=== PATIENT | male | born 1955 | race Caucasian/White ===

== ENCOUNTER → 2024-07-08 | Outpatient (CLI) | payer OTHER, SELFPAY ==
--- NOTE | 2024-07-08 10:38 | XR_ITS ---
Examination: Right temporomandibular joints 3 views TECHNIQUE: Down, sagittal oblique opening mouth closed mouth right temporomandibular joints 3 views Exam date and time: July 08, 2024 11:25 AM INDICATIONS: Right jaw pain popping and grinding sensation 2 months. FINDINGS: Mild osteoarthritis temporomandibular joint No fracture Adequate for translation right mandibular condyle in the open-mouth position IMPRESSION: Mild osteoarthritis temporomandibular joint If symptoms persist, consider MRI temporomandibular joints follow-up
== END | disposition home or self-care (01) ==
LOC: CDIM 09:58
PROVIDERS: PCP Family Medicine; Referring Provider Physician Assistant; Visit Provider Physician Assistant
DX: M19.09 Primary osteoarthritis, other specified site (principal)
CPT/HCPCS: 70328

== ENCOUNTER → 2024-07-19 | Outpatient (CLI) | payer OTHER, SELFPAY ==
--- NOTE | 2024-07-19 10:32 | XR_ITS ---
EXAMINATION: Cervical spine, 5 views Technique: Cervical spine AP, AP odontoid, lateral, bilateral obliques, 5 views Exam date and time: July 19, 2024 1046 hrs. Indications: Neck pain beginning 2 months ago. Findings: Adequate alignment cervical vertebral bodies No cervical fracture Intact odontoid Advanced degenerative disc disease C4-C5, C5-C6 with moderate bilateral neural foraminal stenosis at these levels Impression: Advanced degenerative disc disease C4-C5, C5-C6 with moderate bilateral neural foraminal stenosis
[2024-07-19 11:07] LABS: Alanine Aminotransferase 56 U/L (10-49); Albumin, Serum 4.5 gm/dL (3.4-4.8); Albumin/Globulin Ratio 1.9 (1.2-2.2); Alkaline Phosphatase 64 U/L (46-116); Anion Gap 11 (7-16); Aspartate Amino Transferase 30 U/L (0-34); BUN/Creatinine Ratio 17 Ratio (12-20); Bilirubin,Total 0.9 mg/dL (0.3-1.2); Blood Urea Nitrogen 20 mg/dL (9-23); Calcium 9.9 mg/dL (8.3-10.6); Calcium (Corrected) 9.9 mg/dL (8.5-10.1); Carbon Dioxide 29.5 mMol/L (20.0-31.0); Cardiac Risk Estimate 3.2 RATIO (4.0-6.7); Chloride 101 mMol/L (98-107); Cholesterol 171 mg/dL (132-200); Creatinine (Component) 1.2 mg/dL (0.6-1.3); Globulin 2.4 gm/dL (2.3-3.5); Glucose 123 mg/dL (74-106); HDL Cholesterol 53 mg/dL (40-60); LDL Cholesterol,Calculated 92 mg/dL (0-130); Osmolality,Calculated 284 (275-295); Potassium 3.8 mMol/L (3.4-5.1); Sodium 141 mMol/L (136-145); Total Protein 6.9 gm/dL (5.7-8.2); Triglycerides 131 mg/dL (30-150); eGFR > 60 See Note
[2024-07-19 11:30] LABS: Glucose Estimated Average 157 mg/dL (80-131); Hemoglobin A1C 7.1 % Hgb (4.8-6.0)
== END | disposition home or self-care (01) ==
PROVIDERS: PCP Family Medicine; Referring Provider Physician Assistant; Visit Provider Radiology Diagnostic Radiology
DX: M50.322 Other cervical disc degeneration at C5-C6 level (principal); M48.02 Spinal stenosis, cervical region; I10 Essential (primary) hypertension; E78.5 Hyperlipidemia, unspecified; E11.9 Type 2 diabetes mellitus without complications
CPT/HCPCS: 36415; 72050; 80053; 80061; 83036

== ENCOUNTER → 2024-07-21 | Outpatient (CLI) | payer OTHER, SELFPAY ==
--- NOTE | 2024-07-21 07:30 | XR_ITS ---
Examination: CT brain head without contrast. 2-D sagittal coronal reconstructions Date and time of exam:July 21, 2024 0748 hrs. Indications: Headaches beginning 2 months ago CTDI: vol (mGy):53 DLP: (mGycm):1053 Technique: Multiple CT axial sections of the brain have been obtained, 5 mm slice thickness. Contrast has not been administered. 2-D sagittal, coronal reconstructions have been obtained Low dose protocols were performed. One or more of the following dose reduction techniques were used; automated exposure control, adjustment of the mA and/or KV according to patient size, use of iterative reconstruction technique. Findings: No significant ventricular enlargement. Intra-axial or extra-axial hemorrhage density is not seen. No mass effect or midline shift Basal cisterns are not remarkable. Fourth ventricle is midline. Cranial vault intact. Impression: Negative for acute hemorrhage, mass effect or midline shift Advise clinical correlation and follow-up accordingly
== END | disposition home or self-care (01) ==
LOC: CCTX 06:42
PROVIDERS: PCP Family Medicine; Referring Provider Physician Assistant; Visit Provider Physician Assistant
DX: R51.9 Headache, unspecified (principal)
CPT/HCPCS: 70450

== ENCOUNTER → 2024-11-03 | Outpatient (CLI) | payer OTHER, SELFPAY ==
--- NOTE | 2024-11-03 | XR_ITS ---
Examination: Lumbar spine, 5 views Technique: Lumbar spine AP, lateral, coned lateral lower lumbar spine, bilateral obliques 5 views Exam date and time: November 03, 2024 0721 hours INDICATIONS: Lower back pain one month. FINDINGS: Lumbar dextroscoliosis 10 degrees Moderate diffuse facet arthropathy No lumbar fracture Diffuse lumbar degenerative disc disease, advanced L3-L4, L4-L5 IMPRESSION: Advanced degenerative disc disease L3-L4, L4-L5
== END | disposition home or self-care (01) ==
LOC: CDIM 06:39
PROVIDERS: PCP Physician Assistant; Referring Provider Chiropractor; Visit Provider Chiropractor
DX: M51.360 Other intervertebral disc degeneration, lumbar region with discogenic back pain only (principal); M41.9 Scoliosis, unspecified
CPT/HCPCS: 72110

== ENCOUNTER → 2024-11-22 | Outpatient (CLI) | payer OTHER, SELFPAY ==
[2024-11-22 12:38] LABS: Alanine Aminotransferase 33 U/L (10-49); Albumin, Serum 4.5 gm/dL (3.4-4.8); Albumin/Globulin Ratio 1.7 (1.2-2.2); Alkaline Phosphatase 60 U/L (46-116); Anion Gap 9 (7-16); Aspartate Amino Transferase 30 U/L (0-34); BUN/Creatinine Ratio 13 Ratio (12-20); Blood Urea Nitrogen 15 mg/dL (9-23); Calcium 9.3 mg/dL (8.3-10.6); Calcium (Corrected) 9.3 mg/dL (8.5-10.1); Carbon Dioxide 28.5 mMol/L (20.0-31.0); Chloride 105 mMol/L (98-107); Cholesterol 171 mg/dL (132-200); Creatinine (Component) 1.2 mg/dL (0.6-1.3); Globulin 2.7 gm/dL (2.3-3.5); Glucose 134 mg/dL (74-106); HDL Cholesterol 43 mg/dL (40-60); LDL Cholesterol,Calculated 98 mg/dL (0-130); Osmolality,Calculated 285 (275-295); Potassium 3.6 mMol/L (3.4-5.1); Sodium 142 mMol/L (136-145); Total Protein 7.2 gm/dL (5.7-8.2); Triglycerides 148 mg/dL (30-150); eGFR > 60 See Note
[2024-11-22 13:23] LABS: Glucose Estimated Average 143 mg/dL (80-131); Hemoglobin A1C 6.6 % Hgb (4.8-6.0)
== END | disposition home or self-care (01) ==
LOC: COPL 11:14
PROVIDERS: PCP Physician Assistant; Referring Provider Physician Assistant; Visit Provider Physician Assistant
DX: I10 Essential (primary) hypertension (principal); E78.5 Hyperlipidemia, unspecified; E11.9 Type 2 diabetes mellitus without complications
CPT/HCPCS: 36415; 80053; 80061; 83036

== ENCOUNTER → 2025-02-21 | Outpatient (CLI) | payer OTHER, SELFPAY ==
[2025-02-21 10:45] LABS: Alanine Aminotransferase 56 U/L (10-49); Albumin, Serum 4.6 gm/dL (3.4-4.8); Albumin/Globulin Ratio 1.8 (1.2-2.2); Alkaline Phosphatase 62 U/L (46-116); Anion Gap 12 (7-16); Aspartate Amino Transferase 53 U/L (0-34); BUN/Creatinine Ratio 11 Ratio (12-20); Bilirubin,Total 1.0 mg/dL (0.3-1.2); Blood Urea Nitrogen 13 mg/dL (9-23); Calcium 10.0 mg/dL (8.3-10.6); Calcium (Corrected) 10.0 mg/dL (8.5-10.1); Carbon Dioxide 29.7 mMol/L (20.0-31.0); Cardiac Risk Estimate 4.5 RATIO (4.0-6.7); Chloride 101 mMol/L (98-107); Cholesterol 168 mg/dL (132-200); Creatinine (Component) 1.2 mg/dL (0.6-1.3); Globulin 2.6 gm/dL (2.3-3.5); Glucose 162 mg/dL (74-106); HDL Cholesterol 37 mg/dL (40-60); LDL Cholesterol,Calculated 99 mg/dL (0-130); Osmolality,Calculated 289 (275-295); Potassium 3.4 mMol/L (3.4-5.1); Sodium 143 mMol/L (136-145); Total Protein 7.2 gm/dL (5.7-8.2); Triglycerides 162 mg/dL (30-150); eGFR > 60 See Note
[2025-02-21 11:25] LABS: Glucose Estimated Average 180 mg/dL (80-131); Hemoglobin A1C 7.9 % Hgb (4.8-6.0)
[2025-02-21 11:41] LABS: Creatinine MALB Rnd Ur 112 mg/dL (30-125); Microalbumin Creat Ratio 7 mg/gCrea (<30); Microalbumin, Random Urine 8 mg/L (0-300)
== END | disposition home or self-care (01) ==
LOC: COPL 09:41
PROVIDERS: PCP Family Medicine; Referring Provider Physician Assistant; Visit Provider Physician Assistant
DX: I10 Essential (primary) hypertension (principal); E78.5 Hyperlipidemia, unspecified; E11.9 Type 2 diabetes mellitus without complications
CPT/HCPCS: 36415; 80053; 80061; 82043; 82570; 83036

== ENCOUNTER 2025-03-29 10:09 | Emergency (ER) | payer OTHER, SELFPAY ==
[2025-03-29 10:38] VITALS: BP 154/90; PULSE 85; RESP 18; TEMP 36.7; O2SAT 98; BMI 31.3
--- NOTE | 2025-03-29 10:46 | PD.EDRME ---
Rapid Medical Screening Exam RME Arrival date/time: 03/29/25 10:09 69-year-old male presents emergency department today stating has been having right lower extremity pain for some time patient reports his doctor ordered an outpatient ultrasound outpatient today Chief Complaint: General Adult/Misc Complain Vital signs: Vital Signs Temperature 98.1 F 03/29/25 10:38 Pulse Rate 85 03/29/25 10:38 Respiratory Rate 18 03/29/25 10:38 Blood Pressure 154/90 H 03/29/25 10:38 Pulse Oximetry (%) 98 03/29/25 10:38 Oxygen Delivery Method Room Air 03/29/25 10:38 Vital signs reviewed by provider: Yes Exam: On exam patient well-appearing patient does not appear ill or toxic Patient does have mild tenderness to right lower extremity Clinical Impression: Lab work ordered Imaging reviewed
[2025-03-29 11:18] LABS: Basophils # (Auto) 0.0 Thou/mm3 (0.0-0.2); Basophils % (Auto) 0 % (0-2.5); Eosinophils # (Auto) 0.1 Thou/mm3 (0.0-0.5); Eosinophils % (Auto) 1 % (0-10); Hematocrit 44.3 % (41.0-53.0); Hemoglobin 15.0 g/dL (13.5-16.0); Immature Granulocytes Auto 0.02 Thou/mm3 (0.00-0.00); Lymphocytes # (Auto) 1.7 Thou/mm3 (1.0-4.8); Lymphocytes % (Auto) 22 % (10-50); Mean Corpuscular HGB Conc 33.9 g/dl (31.0-37.0); Mean Corpuscular Hemoglobin 29.5 pg (25.0-35.0); Mean Corpuscular Volume 87 fL (80-100); Monocytes # (Auto) 0.4 Thou/mm3 (0.0-0.8); Monocytes % (Auto) 6 % (0-12); Neutrophils # (Auto) 5.5 Thou/mm3 (1.8-7.7); Neutrophils % (Auto) 71 % (37-80); Nucleated Red Blood Cell # 0.00 Thou/mm3 (0.00-0.00); Nucleated Red Blood Cell % 0 /100 WBC (0); Platelet Count 100 Thou/mm3 (140-440); RDW Standard Deviation 38.4 fL (35.1-43.9); Red Blood Count 5.09 Miln/mm3 (4.50-5.90); White Blood Count 7.7 Thou/mm3 (3.8-10.6)
[2025-03-29 11:32] LABS: Alanine Aminotransferase 44 U/L (10-49); Albumin, Serum 5.1 gm/dL (3.4-4.8); Albumin/Globulin Ratio 1.6 (1.2-2.2); Alkaline Phosphatase 65 U/L (46-116); Anion Gap 10 (7-16); Aspartate Amino Transferase 38 U/L (0-34); BUN/Creatinine Ratio 8 Ratio (12-20); Bilirubin,Total 0.7 mg/dL (0.3-1.2); Blood Urea Nitrogen 9 mg/dL (9-23); Calcium 10.3 mg/dL (8.3-10.6); Calcium (Corrected) 10.3 mg/dL (8.5-10.1); Carbon Dioxide 28.6 mMol/L (20.0-31.0); Chloride 102 mMol/L (98-107); Creatinine (Component) 1.2 mg/dL (0.6-1.3); Estimated Creatinine Clearance 67.4 mL/min (>60); Globulin 3.1 gm/dL (2.3-3.5); Glucose 118 mg/dL (74-106); Osmolality,Calculated 280 (275-295); Potassium 3.1 mMol/L (3.4-5.1); Sodium 141 mMol/L (136-145); Total Protein 8.2 gm/dL (5.7-8.2); eGFR > 60 See Note
[2025-03-29 13:29] LABS: INR 1.1 (0.9-1.3); Partial Thromboplastin Time 24.9 Seconds (22.0-36.0); Prothrombin Time 11.6 Seconds (9.0-12.2)
--- NOTE | 2025-03-29 14:54 | PD.EDEXREM ---
ED Extremity Problem RME/HPI General Chief complaint: General Adult/Misc Complain Stated complaint: SENT BY SANGEETHA BAZZI. DVT R) LEG; SENT BY RADIOLOGIST Time Seen by Provider: 03/29/25 11:52 Arrival date/time: 03/29/25 10:09 RME / HPI RME / HPI Narrative: 03/29/25 10:09 69-year-old male presents emergency department today stating has been having right lower extremity pain for some time patient reports his doctor ordered an outpatient ultrasound outpatient today DR. CASTELLON MAIN ED EVALUATION 69 year old male patient with history of hypertension and diabetes presents to the ED, referred by PCP, for further evaluation and treatment of right lower extremity swelling and pain beginning ~ 4 days ago. Reportedly consulted with his PCP who ordered labs and an ultrasound that was performed today. States he had the ultrasound today and was called by PCP advising he come to the ED for further evaluation. Patient denies any history of similar pain or swelling. Denies use of blood thinners. States only medications he takes are for his blood pressure and diabetes. Patient does mention since starting Mounjaro for diabetes 2-3 weeks ago he has had occasional palpitations though not any worse since onset of leg swelling and pain. Exam: On exam patient well-appearing patient does not appear ill or toxic Patient does have mild tenderness to right lower extremity Impression: Lab work ordered Imaging reviewed Related Data Home Medications ?Medication ?Instructions ?Recorded ?Confirmed alprazolam 0.5 mg tablet (Xanax) 0.5 mg PO BID #0 tabs 10/30/15 12/24/18 amlodipine 10 mg tablet (Norvasc) 10 mg PO QDAY #0 tabs 10/30/15 12/24/18 lisinopril 40 mg tablet 40 ml PO QDAY #0 tabs 10/30/15 12/24/18 aspirin 81 mg tablet,delayed 81 mg PO QDAY 12/24/18 12/24/18 release (Aspir-) esomeprazole magnesium 20 mg 20 mg PO QDAY 12/24/18 12/24/18 capsule,delayed release (Nexium) hydrochlorothiazide 12.5 mg tablet 12.5 mg PO QDAY 12/24/18 12/24/18 ranitidine HCl 300 mg tablet 300 mg PO QDAY 12/24/18 12/24/18 rosuvastatin 10 mg tablet (Crestor) 10 mg PO QDAY 12/24/18 12/24/18 Previous Rx's ?Medication ?Instructions ?Recorded ibuprofen 600 mg tablet 600 mg PO Q6H #30 tabs 11/25/23 tramadol 50 mg tablet 50 mg PO BID PRN pain #8 tabs 11/25/23 Allergies Allergy/AdvReac Type Severity Reaction Status Date / Time No Known Allergies Allergy Verified 03/29/25 10:12 Review of Systems Review of Systems Systems Reviewed: All systems reviewed, normal except as documented Past Medical History Past Medical History CARDIAC: Positive Cardiac Disorders, Coronary Artery Disease, Atherosclerotic Heart Disease, Hypercholesterolemia and Hypertension GASTROINTESTINAL: Positive Gastrointestinal Disorders (Hepatomegaly), Ulcer, Gastroesophageal Reflux Disease and Obesity ENT: Positive Cataracts PSYCHO/SOCIAL: Positive Anxiety Surgical History SURGICAL: Positive Eye Surgery (Left cataract) Social History SMOKING STATUS: Never smoker ED Exam Narrative Physical exam: GENERAL APPEARANCE:? alert and oriented x 4, well-developed, well-nourished, no acute distress HEENT: normocephalic, atraumatic NECK: supple LUNGS: no respiratory distress, normal effort HEART: good peripheral perfusion ABDOMEN: non distended EXTREMITIES:? atraumatic; no swelling or edema to bilateral lower extremities NEUROLOGIC: awake; alert and oriented x4; cranial nerves II-XII grossly intact PSYCHIATRIC:? appropriate mood and affect SKIN: warm, dry, normal color; no rashes Course Quality Measures none Orders Category Date Time Status CBC Stat Lab 03/29/25 11:00 Completed Comprehensive Metabolic Panel Stat Lab 03/29/25 11:00 Completed Partial Thromboplastin Time Stat Lab 03/29/25 12:35 Completed Prothrombin Time with INR Stat Lab 03/29/25 12:35 Completed Vital Signs Vital signs: Vital Signs Temperature 98.1 F 03/29/25 10:38 Pulse Rate 85 03/29/25 10:38 Respiratory Rate 18 03/29/25 10:38 Blood Pressure 154/90 H 03/29/25 10:38 Pulse Oximetry (%) 98 03/29/25 10:38 Oxygen Delivery Method Room Air 03/29/25 10:38 Pulse ox is 98% on room air which is adequate. Extremity Problem MDM Narrative MDM Narrative:: Liliana Buchanan am scribing for and in the presence of Dr. Castellon. Patient data External records reviewed:: [facility] previous records Clinical information provided by:: patient Social determinants that could affect healthcare access:: none Patient has the following chronic illnesses:: HTN and DM How is presenting disease/condition affected by chronic disease/condition?: exacerbated by Evaluation data The following diagnostics were reviewed and interpreted by me:: lab results and radiology exam(s) Lab and/or radiology exams considered but not ordered:: None Interpretation Summary: Ordering Physician: Jenni Costa PA-C Date of Service: 03/29/25 Procedure(s): US venous doppler LE RT Accession Number(s): [id number] cc: Kyle Pereira MD; Jenni Costa PA-C~ Examination: Duplex scan of the lower extremity, unilateral right Date and time of exam: March 29, 2025, 0915 hours INDICATIONS: Right leg swelling and pain beginning 1 week ago Technique: Duplex scan of the extremity veins using B-mode/grayscale imaging and Doppler spectral analysis and color flow Attention is directed to internal echogenicity, compression and augmentation involving these veins, color flow assessment, spectral analysis Findings: Suspicious for nonocclusive thrombus involving the right popliteal vein Remaining deep venous system unremarkable IMPRESSION: Suspicious for nonocclusive thrombus involving the right popliteal vein Dictated By: Kyle Pereira MD Signed By: <Electronically signed by Kyle Pereira MD in OV> 03/29/25 1027 Medications / Prescriptions Medications or Prescriptions considered but not ordered:: None Medication administrations:: None Consultations Consultation(s) initiated? (list below): Yes Consultation #1 (Physician, Specialty, Details): I spoke with dental financial coordinator Dr. Eduardo Pinon. Discussed patients PMHx, HPI, ED course, exam findings, labs, and radiology results. Reports he will follow up with patient in his office on an outpatient basis. Time: 15:00 Diagnosis Most likely diagnosis given after review of the tests above:: Right leg pain Admission Indicated Admission indicated?: not indicated Explain why admission is indicated or not indicated:: With no condition needing emergent intervention, there was no indication for admission. Admission Request Was there a request for admission?: No Disposition Plan Disposition Plan: Discharge Discharge Attestation Discharge Attestation: The patient and all family members were given an opportunity to ask questions and understood the discharge instructions. Discharge instructions specifically effects, indications for sooner follow up or return to the emergency department, and the expected course of current diagnosis. Patient condition: Stable Discharge Plan Plan Patient Disposition: HOME (Self Care) Prescriptions/Referrals Prescriptions/Med Rec: No Action alprazolam [Xanax] 0.5 MG tablet 0.5 mg PO BID Qty: 0 amlodipine [Norvasc] 10 MG tablet 10 mg PO QDAY Qty: 0 lisinopril 40 MG tablet 40 ml PO QDAY Qty: 0 ranitidine HCl 300 mg Tablet 300 mg PO QDAY aspirin [Aspir-81] 81 mg Tablet,Delayed Release (Dr/Ec) 81 mg PO QDAY esomeprazole magnesium [Nexium] 20 mg Capsule,Delayed Release(Dr/Ec) 20 mg PO QDAY rosuvastatin [Crestor] 10 mg Tablet 10 mg PO QDAY hydrochlorothiazide 12.5 mg Tablet 12.5 mg PO QDAY tramadol 50 mg tablet 50 mg PO BID PRN (Reason: pain) Qty: 8 0RF ibuprofen 600 mg tablet 600 mg PO Q6H Qty: 30 0RF Referrals: Jenni Costa PA-C [Primary Care Provider] - In 1 week Emelia Pinon MD [Physician, Cardiology] Problem List Clinical Impression: Right leg pain Patient/Caregiver Discharge Instructions Additional Instructions: Follow up with Dr. Pinon as needed to review ultrasound results. Call office for follow-up appointment. Print Language: Latvian Stand Alone Forms: [employer] Award Info., Patient Portal Info Letter
== END 2025-03-29 15:53 | disposition home or self-care (01) ==
PROVIDERS: Nurse Practitioner Primary Care; Emergency Provider Emergency Medicine; PCP Physician Assistant
DX: M79.604 Pain in right leg (principal)
CPT/HCPCS: 36415; 80053; 85025; 85610; 85730; 99282

== ENCOUNTER → 2025-03-29 | Outpatient (CLI) | payer OTHER, SELFPAY ==
--- NOTE | 2025-03-29 09:02 | XR_ITS ---
Examination: Arterial duplex lower extremity study. Date and time of exam: March 29, 2025, 0920 hours INDICATIONS: Right leg pain and swelling beginning 1 week ago Findings: Duplex sonographic imaging of the lower extremity arteries using B-mode/Gonzalez scale imaging and Doppler spectral analysis and color flow. Ankle brachial indices have been recorded. Right common femoral artery demonstrates triphasic flow. Right superficial femoral artery demonstrates triphasic flow. Right popliteal artery demonstrates triphasic flow. Right posterior tibial artery demonstrated triphasic flow. Left common femoral artery demonstrates triphasic flow. Left superficial femoral artery demonstrates triphasic flow. Left popliteal artery demonstrates triphasic flow. Left posterior tibial artery demonstrated triphasic flow. Left ankle/brachial index is 1.2. Impression: Negative for significant obstructive arterial disease
--- NOTE | 2025-03-29 09:02 | XR_ITS ---
Examination: Duplex scan of the lower extremity, unilateral right Date and time of exam: March 29, 2025, 0915 hours INDICATIONS: Right leg swelling and pain beginning 1 week ago Technique: Duplex scan of the extremity veins using B-mode/grayscale imaging and Doppler spectral analysis and color flow Attention is directed to internal echogenicity, compression and augmentation involving these veins, color flow assessment, spectral analysis Findings: Suspicious for nonocclusive thrombus involving the right popliteal vein Remaining deep venous system unremarkable IMPRESSION: Suspicious for nonocclusive thrombus involving the right popliteal vein
== END | disposition home or self-care (01) ==
PROVIDERS: PCP Physician Assistant; Referring Provider Physician Assistant; Visit Provider Physician Assistant
DX: M79.604 Pain in right leg (principal); R60.0 Localized edema; Z86.718 Personal history of other venous thrombosis and embolism
CPT/HCPCS: 93922; 93971

== ENCOUNTER → 2025-05-05 | Outpatient (CLI) | payer OTHER, SELFPAY ==
--- NOTE | 2025-05-05 08:38 | XR_ITS ---
Examination: Right hip AP, lateral, AP pelvis 3 views Technique: Hip AP lateral, AP pelvis, 3 views Exam date and time: May 05, 2025, 0901 hours INDICATION: Right hip pain beginning 3 months ago FINDINGS: Moderate right hip osteoarthritis No right hip fracture or dislocation Mild left hip osteoarthritis Bones of the pelvis intact IMPRESSION: Moderate right hip osteoarthritis.
== END | disposition home or self-care (01) ==
PROVIDERS: PCP Physician Assistant; Referring Provider Physician Assistant; Visit Provider Physician Assistant
DX: M16.11 Unilateral primary osteoarthritis, right hip (principal)
CPT/HCPCS: 73502